=== PATIENT | female | born 1955 | race Caucasian/White ===

== ENCOUNTER 2022-02-27 08:22 | Emergency (ER) | payer MEDICARE, SELFPAY ==
[2022-02-27 08:30] VITALS: BP 147/69; PULSE 78; RESP 14; TEMP 36.3; O2SAT 100
[2022-02-27] MEDS: methylPREDNISolone SOD SUCC 125 MG VIAL IM (09:00)
--- NOTE | 2022-02-27 09:04 | ED.GENADULT ---
HPI - General Adult General Chief complaint: Skin/Abscess/Foreign Body Stated complaint: ear ache back pain and poison [place] History of Present Illness HPI narrative: Patient presents for evaluation of pruritic rash to the bilateral upper and lower extremities and abdomen. She indicates she was working outside and knows that there is poison [place] in the area in which she was working. She has had allergic response to it in the past. In the middle of last week she developed itching and redness to the extremities x4 and abdomen. No difficulty breathing or swallowing. She has been applying calamine lotion. In the past she received a steroid injection which helped. She reports some pain in thoracic spinal region for the past eight days. She states that she noted pain after a twisting motion. Pain is moderate in severity and without descriptive quality. She is not taking medication for her symptoms. Finally, she reports left sided ear pain. No tinnitus. She is [place] at baseline, without worsening of her symptoms. Related Data Home Medications Medication Instructions Recorded Confirmed bupropion HCl 150 mg 24 hr tablet, 1 tablet PO DAILY 02/27/22 02/27/22 extended release famotidine 40 mg tablet 1 tablet PO DAILY 02/27/22 02/27/22 paroxetine HCl 20 mg tablet 1 tablet PO HS 02/27/22 02/27/22 pravastatin 40 mg tablet 1 tablet PO DAILY 02/27/22 02/27/22 Allergies Allergy/AdvReac Type Severity Reaction Status Date / Time No Known Allergies Allergy Verified 02/27/22 08:44 Review of Systems Review of Systems: CONSTITUTIONAL: Denies fever, chills, or sweats. EYES: Denies visual changes, redness, or discharge. ENT: Reports left ear pain. Reports chronic hearing impairment, not worse as of late. Denies rhinorrhea, congestion, sore throat CARDIOVASCULAR: Denies chest pain, palpitations, or edema. RESPIRATORY: Denies cough or dyspnea. GASTROINTESTINAL: Denies abdominal pain, nausea, vomiting, or diarrhea. GENITOURINARY: Denies dysuria or hematuria. SKIN: Reports pruritic rash to extremities x 4 and abdomen. MUSCULOSKELETAL: Reports back pain. Denies joint pain, or myalgia. NEUROLOGIC: Denies headache, numbness, dizziness, or weakness. PSYCHIATRIC: Denies anxiety or depression. [facility] Past Medical History Medical History GERD (gastroesophageal reflux disease) Hyperlipidemia Surgical History Surgical History (Updated 02/27/22 @ 09:12 by LINDA López, ) No pertinent past surgical history Family History Family History Mother Family history non-contributory Social History Social History Smoking status: Never smoker Substance use: never Gender identity (if verbalized by the patient): Female Spiritual care concerns: No Exam Narrative: GENERAL: Well-appearing, well-nourished, and in no acute distress. HEAD: Normocephalic, atraumatic. EYES: PERRLA and EOMI. ENT: Nares clear, no rhinorrhea or epistaxis. Mucous membranes moist. Oropharynx without tonsillar hypertrophy exudate or other lesions. Bilateral TMs pearly khalil nonbulging NECK: Supple. No adenopathy or masses. No carotid bruits or JVD CHEST: Clear to auscultation. No respiratory distress. No wheezes rales or rhonchi HEART: Regular rate and rhythm. No murmur heard. Normal peripheral pulses. ABDOMEN: Soft, nontender, nondistended, normal active bowel sounds. EXTREMITIES: Normal range of motion. No edema. SKIN: There are scattered patchy areas of erythema with streaking noted to BUE, BLE and right side of the abdomen NEURO: No focal deficits. Alert and oriented x3. PSYCH: Normal mood and affect. Course Course Emergency Course: This is a 66-year-old female who presented with complaints of allergic dermatitis following exposure to poison [place]. Given Solu-Medrol
== END 2022-02-27 09:20 | disposition home or self-care (01) ==
PROVIDERS: Emergency Provider Nurse Practitioner; PCP Internal Medicine Geriatric Medicine
DX: L23.7 Allergic contact dermatitis due to plants, except food (principal); S29.012A Strain of muscle and tendon of back wall of thorax, initial encounter; X50.9XXA Other and unspecified overexertion or strenuous movements or postures, initial encounter; H92.02 Otalgia, left ear; K21.9 Gastro-esophageal reflux disease without esophagitis; E78.5 Hyperlipidemia, unspecified
CPT/HCPCS: 96372; 99213; G0463; J2930